=== PATIENT | female | born 1985 | race Caucasian/White ===

== ENCOUNTER 2016-10-13 06:18 | Day surgery (SDC) | payer SELFPAY ==
--- NOTE | 2016-10-13 07:09 | ER Document Report ---
ED Extremity Problem, Upper - General Time seen by provider: 07:04 Mode of Arrival: Ambulatory Information source: Patient TRAVEL OUTSIDE OF THE [place] IN LAST 30 DAYS: No - HPI Patient complains to provider of: Injury, Pain, Right, Forearm Onset: This morning <ELISA HOLLOWAY - Last Filed: 10/13/16 07:57> <ADRIANAZEEM Briceño - Last Filed: 10/13/16 11:41> - General Chief Complaint: Arm Injury Stated Complaint: ARM INJURY Notes: Patient is a 31-year-old female patient presenting to the emergency department with complaints of breaking off a needle into her right forearm while trying to learn how to self-inject methamphetamine. Patient states that she is learning how to inject herself with methamphetamine instead of her lying on another person to inject it for her. Patient states she was just practicing today when the needle broke off and is stuck in her arm. Patient and her friend attempted to get the needle out her arm with a hot compress, hydrogen peroxide etc. Patient is unsure of her last tetanus shot. Patient has a history of hypothyroidism and is supposed to be taking Synthroid; patient is not taking his medication because she states that her insurance has to pay for it which has not happened yet. Patient smokes and occasionally drinks alcohol but has no known allergies. (ELISA HOLLOWAY) - Related Data Allergies/Adverse Reactions: No Known Allergies Allergy (Unverified 10/13/16 06:26) Past Medical History - General Information source: Patient - Social History Smoking Status: Current Every Day Smoker Cigarette use (# per day): Yes - 1/2 ppd Chew tobacco use (# tins/day): No Frequency of alcohol use: Occasional Drug Abuse: Methamphetamine Family History: None Patient has suicidal ideation: No Patient has homicidal ideation: No Endocrine Medical History: Reports: Hx Hypothyroidism Past Surgical History: Reports: Hx Gynecologic Surgery - cervical cancer removal , Other - colonoscopy - Immunizations Hx Diphtheria, Pertussis, Tetanus Vaccination: Yes <ELISA HOLLOWAY - Last Filed: 10/13/16 07:57> Review of Systems - Review of Systems Constitutional: No symptoms reported EENT: No symptoms reported Cardiovascular: No symptoms reported Respiratory: No symptoms reported Gastrointestinal: No symptoms reported Genitourinary: No symptoms reported Female Genitourinary: No symptoms reported Musculoskeletal: See HPI Skin: See HPI Hematologic/Lymphatic: No symptoms reported Neurological/Psychological: No symptoms reported -: Yes All other systems reviewed and negative <ELISA HOLLOWAY - Last Filed: 10/13/16 07:57> Physical Exam - Vital signs Interpretation: Tachycardic - General General appearance: Appears well, Alert In distress: Mild - HEENT Head: Normocephalic, Atraumatic Eyes: Normal Pupils: PERRL Mouth/Lips: Other - poor dental condition Mucous membranes: Normal - Respiratory Respiratory status: No respiratory distress Chest status: Nontender Breath sounds: Normal Chest palpation: Normal - Cardiovascular Rhythm: Regular, Tachycardia Heart sounds: Normal auscultation Murmur: No - Abdominal Inspection: Normal Distension: No distension Bowel sounds: Normal Tenderness: Nontender Organomegaly: No organomegaly - Back Back: Normal, Nontender - Extremities General lower extremity: Normal inspection, Normal ROM, Normal strength Arm: Other - right antecubital medial area is where the broken needle is located , somewhat red and tender; several other injection sites to the right antecubital area that are firm and swollen - Neurological Neuro grossly intact: Yes Cognition: Normal Orientation: AAOx4 [place] Coma Scale Eye Opening: Spontaneous [place] Coma Scale Verbal: Oriented [place] Coma Scale Motor: Obeys Commands Magan Coma Scale Total: 15 Speech: Normal Sensory: Normal - Psychological Associated symptoms: Normal affect, Normal mood - Skin Skin Temperature: Warm Skin Moisture: Dry <ELISA HOLLOWAY - Last Filed: 10/13/16 07:57> Course - Laboratory Result Diagrams: 10/13/16 08:22 10/13/16 08:22 - Consults Dr. Mooney Time consulted: 08:10 Consulted provider: will come to ER <AZEEM CAMPBELL - Last Filed: 10/13/16 11:41> - Vital Signs Vital signs: Temp Pulse Resp BP Pulse Ox 98.1 F 103 H 18 132/89 H 100 10/13/16 06:23 10/13/16 06:23 10/13/16 06:23 10/13/16 06:23 10/13/16 06:23 (ELISA HOLLOWAY) (AZEEM CAMPBELL) - Laboratory Laboratory results interpreted by me: 10/13/16 08:22 WBC 13.0 H MCV 98 H MCHC 31.7 L Absolute Neutrophils 9.9 H Discharge <ELISA HOLLOWAY - Last Filed: 10/13/16 07:57> - Discharge Admitting Provider: Surgicalist Unit Admitted: OR <AZEEM CAMPBELL - Last Filed: 10/13/16 11:41> - Discharge Clinical Impression: Foreign body (FB) in soft tissue Needlestick injury accident Qualifiers: Encounter type: initial encounter Qualified Code(s): W27.3XXA - Contact with needle (sewing), initial encounter Condition: Stable Disposition: ADMITTED INPATIENT Scribe Attestation: 10/13/16 11:41 I personally performed the services described in the documentation, reviewed and edited the documentation which was dictated to the scribe in my presence, and it accurately records my words and actions. (AZEEM CAMPBELL) Scribe Documentation <ELISA HOLLOWAY - Last Filed: 10/13/16 07:57> <AZEEM CAMPBELL - Last Filed: 10/13/16 11:41> - Scribe Written by Scribe:: AZEEM CAMPBELL MD, SCRIBE 10/13/16 0825 Acting as scribe for: Dr. Campbell (ELISA HOLLOWAY) (AZEEM CAMPBELL)
[2016-10-13] MEDS ORDERED: DIPH/PERTUSS(ACELL)/TETANUS VAC/PF 0.5 ML SYR (>=10YO) IM ONE (08:03)
[2016-10-13] MEDS ORDERED: CEFAZOLIN 1 GM/D5W RTU 50 ML IV ONE (08:03)
[2016-10-13] MEDS ORDERED: NORMAL SALINE 1000 ML 1,000 ML IV ONE (08:04)
[2016-10-13 08:39] LABS: ABSOLUTE BASOPHILS # (AUTO) 0.1 10^3/uL (0.0-0.2); ABSOLUTE EOSINOPHILS # (AUTO) 0.1 10^3/uL (0.0-0.6); ABSOLUTE LYMPHOCYTES (AUTO) 2.2 10^3/uL (0.5-4.7); ABSOLUTE MONOCYTES (AUTO) 0.8 10^3/uL (0.1-1.4); ABSOLUTE NEUT (AUTO) 9.9 10^3/uL (1.7-8.2); BASOPHILS % (AUTO) 0.7 % (0-2); EOSINOPHILS % (AUTO) 0.5 % (0-6); HEMATOCRIT 42.8 % (36.0-47.0); HEMOGLOBIN 13.6 g/dL (12.0-15.5); LYMPHOCYTES % (AUTO) 16.7 % (13-45); MEAN CORPUSCULAR HGB CONC 31.7 g/dL (32.0-36.0); MEAN CORPUSCULAR VOLUME 98 fl (80-97); RED BLOOD COUNT 4.38 10^6/uL (3.72-5.28); RED CELL DISTRIBUTION WIDTH 13.4 % (11.5-14.0); SEGMENTED NEUTROPHILS % (AUTO) 76.1 % (42-78)
[2016-10-13] MEDS ORDERED: NICOTINE 14 MG/24 HR PATCH.TD24 TD ONE (09:54)
[2016-10-13] MEDS ORDERED: LORAZEPAM INJ 2 MG/1 ML VIAL IV ONE (09:54)
[2016-10-13 11:54] LABS: ALANINE AMINOTRANSFERASE 37 U/L (9-52); ALBUMIN 3.9 g/dL (3.5-5.0); ALKALINE PHOSPHATASE 75 U/L (38-126); ANION GAP 11 (5-19); ASPARTATE AMINO TRANSFERASE 36 U/L (14-36); BILIRUBIN,TOTAL 0.6 mg/dL (0.2-1.3); BLOOD UREA NITROGEN 10 mg/dL (7-20); CALCIUM 9.5 mg/dL (8.4-10.2); CARBON DIOXIDE 23 mmol/L (22-30); CHLORIDE 105 mmol/L (98-107); CREATININE RESULT 0.54 mg/dL (0.52-1.25); GLUCOSE 72 mg/dL (75-110); POTASSIUM 4.2 mmol/L (3.6-5.0); SODIUM 139.3 mmol/L (137-145); TOTAL PROTEIN 6.7 g/dL (6.3-8.2)
[2016-10-13] MEDS ORDERED: DEXTROSE 5%-LACTATED RINGERS 1,000 ML IV PRN ×3 (11:54→14:44)
[2016-10-13] MEDS ORDERED: DEXTROSE 5%-LACTATED RINGERS 1,000 ML IV ONE (12:14)
[2016-10-13] MEDS ORDERED: BUPIVACAINE HCL 0.5%-EPI 1:200000 INJ/PF 30 ML VIAL ONE (12:44)
[2016-10-13] MEDS ORDERED: FENTANYL CITRATE INJ/PF 100 MCG/2 ML AMPUL ONE (13:21)
[2016-10-13] MEDS ORDERED: MIDAZOLAM 2 MG/2 ML INJ ONE (13:21)
[2016-10-13] MEDS ORDERED: PROPOFOL INJ 200 MG/20 ML VIAL IV ONE (13:21)
[2016-10-13] MEDS ORDERED: LIDOCAINE 2%/EPINEPHRINE INJ 20 ML VIAL ONE (13:24)
[2016-10-13] MEDS ORDERED: ROPIVACAINE HCL 0.5% INJ/PF (5 MG/1 ML) 30 ML SDV ONE (13:25)
[2016-10-13] MEDS ORDERED: LIDOCAINE 2% INJ-PF (20 MG/ML) 10 ML AMPUL ONE (13:25)
--- NOTE | 2016-10-13 13:28 | HISTORY AND PHYSICAL E ---
History and Physical NAME: ADRY LEO : 1985 AGE: 31Y ADMITTED: 10/13/2016 ROOM: REASON FOR ADMISSION: Foreign body needle in right antecubital fossa. HISTORY OF PRESENT ILLNESS: This 31-year-old female presented to the emergency room because of a needle fragment enlodged in her antecubital fossa of the right upper extremity after injection of methamphetamines. The patient gives history of using methamphetamine since 02/2016 and has been injecting herself in her right forearm; however, the needle broke off in her arm and she presented to the emergency room complaining of pain at the needle injection site. The patient has stable vital signs and x-ray of the right forearm revealed the needle fragment in the subcutaneous tissue of the right forearm at the antecubital fossa. However, upon physical examination, only induration could be appreciated and the needle fragment could not be felt. The patient complains of pain 8/10 in the right forearm and she complains of radiating pains down her forearm to her wrist. Because of the significance of the pain, the patient will be taken to the operating room for removal of foreign body under fluoroscopy. PAST MEDICAL HISTORY: The patient has a previous history of hyperthyroidism and has been on Synthroid in the past. MEDICATIONS: The patient takes no medications at this time, but has been on tramadol, Zoloft and Visceral in the past. ALLERGIES: None. REVIEW OF SYSTEMS: The patient has no symptoms referable to the ears, nose, and throat, respiratory, cardiovascular, gastrointestinal, integumentary, lymphatic, endocrine systems. SOCIAL HISTORY: The patient smokes a pack of cigarettes for every day and a half and has been injecting amphetamines since 02/2016, drinks alcohol very rarely. PHYSICAL EXAMINATION: GENERAL: Examination reveals a 31-year-old female who is normally nourished, normally developed and complaining of right upper extremity pain. VITAL SIGNS: Blood pressure 132/89, temperature 98.1, pulse rate 103, respirations 18, saturations 100%. HEENT: There is no conjunctival pallor or scleral icterus. Mucous membranes are moist and pink. NECK: Supple without nodes or masses of thyroid, JVD, or bruits. Trachea is midline. CHEST: Chest wall shows good excursion. The lungs are clear anteriorly with good entry. CARDIOVASCULAR: The pulses are regular without murmurs or gallops. Mildly tachycardic. ABDOMEN: Soft and flat. Bowel sounds are present. There are no hernias or bruits. EXTREMITIES: Pertinent findings limited to the right upper extremity, where there is induration at the site of previous injections. There is tenderness just over the medial antecubital fossa region at the recent injection site. No foreign body can be palpated, but this area is moderately tender with induration without significant erythema or increased warmth. No discharge is noted. There are no sensory or motor deficits in the right upper extremity and adequate pulses are noted. Extremities otherwise show full range of motion. IMPRESSION: Foreign body needle in the right forearm secondary to methamphetamine injection. PLAN: Because of the patient's significant pain, we will take her to the OR for removal of the foreign under fluoroscopy. DICTATING PHYSICIAN: ALAN BILLY M.D. [id number] PHY#: [id number] ID: [id number] JOB#: [id number] ACCT: [id number] cc:ALAN BILLY M.D. >
[2016-10-13] MEDS ORDERED: DEXMEDETOMIDINE INJ 80 MCG/20 ML VIAL IV ONE (13:49)
[2016-10-13] MEDS ORDERED: FENTANYL CITRATE INJ/PF 100 MCG/2 ML AMPUL IV PRN ×3 (14:33)
[2016-10-13] MEDS ORDERED: OXYCODONE-ACETAMINOPHEN 5-325 MG TABLET PO PRN (14:39)
--- NOTE | 2016-10-13 15:07 | Brief Operative Note ---
BRIEF OPERATIVE REPORT DATE OF SURGERY: 10/13/16 TIME OF SURGERY: 14:00 PREOPERATIVE DIAGNOSIS: Foreign Body (Needle) of right forearm. POSTOPERATIVE DIAGNOSIS: Same SURGEON: ALAN BILLY FINDINGS: Foreign Body Needle in Rt. upper extremity antecubital fossa. COMPLICATIONS: None ESTIMATED BLOOD LOSS: Negligible TISSUE REMOVED OR ALTERED: Needle foreign body TECHNICAL PROCEDURE: See Operative report
[2016-10-13] MEDS ORDERED: INFLUENZA ADLT QUAD (36MOS+) 2016-17 VAC 0.5 ML SYR IM PRN (15:52)
--- NOTE | 2016-10-13 15:53 | OPERATIVE REPORT E ---
Operative Report NAME: ADRY LEO : 1985 AGE: 31Y DATE OF SURGERY: 10/13/2016 ROOM: 209 PREOPERATIVE DIAGNOSIS: Foreign body needle of right antecubital fossa. POSTOPERATIVE DIAGNOSIS: Foreign body needle of right antecubital fossa. PROCEDURE: Removal of foreign body needle from antecubital fossa of the right arm. SURGEON: ALAN BILLY M.D. ANESTHESIA: Regional plus local anesthesia with 1% Xylocaine and Marcaine. COMPLICATIONS: None. CONDITION: Stable. REPLACEMENT: Crystalloid. DRAINS: None. INDICATIONS FOR PROCEDURE: This 31-year-old female presented to the emergency room after attempting an injection of methamphetamines with the needle breaking off in her right forearm. The patient comes to the emergency room complaining of pain in the antecubital fossa. The needle could not be felt, but the needle was noted in the subcutaneous tissue or below on the x-ray. Upon my examination, I could not palpate the needle and the patient is being brought to the operating room for removal under fluoroscopic guidance. DESCRIPTION OF PROCEDURE: The patient was brought to the operating room and left on her stretcher. The right upper extremity was prepped and draped in the usual sterile manner, and then a C-arm was brought in. After sign out was achieved, we used a marker to identify the position of the needle using fluoroscopic guidance. After this, a *------* was placed on the forearm. A transverse incision was made across, just anterior to the antecubital fossa and carried through the skin and subcutaneous tissue. Under fluoroscopic guidance, we were able to locate the needle and after opening up the superficial fascia in the forearm, we isolated the needle in the subcutaneous tissue. The needle was removed intact and fluoroscopic inspection after removal showed no evidence of remaining fragments. After removal of the needle, the wound was irrigated with normal saline and then the subcutaneous tissue was approximated using 3-0 Vicryl and the skin was approximated using 4-0 Vicryl subcuticular *------* with application of Dermabond. The patient tolerated the procedure well. Sponge and instrument counts were correct. The patient was discharged to the PACU in a stable condition. DICTATING PHYSICIAN: ALAN BILLY M.D. [id number] PHY#: [id number] ID: [id number] JOB#: [id number] ACCT: [id number] cc:ALAN BILLY M.D. >
--- NOTE | 2016-10-13 15:53 | DISCHARGE SUMMARY E ---
Discharge Summary NAME: ADRY LEO : 1985 AGE: 31Y ADMITTED: 10/13/2016 DISCHARGED: 10/13/2016 DISCHARGE DIAGNOSIS: Status post removal of foreign body (needle) from right forearm. 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 The patient was seen in the emergency room complaining of pain in the antecubital fossa, but the needle could not be palpated. The needle on x-ray was noted in the forearm just below the antecubital fossa, just in the mid portion of the forearm. The patient complained of pain in this area, and because the needle could not be palpated, the patient was taken to the operating room, where under fluoroscopic guidance the needle was removed. The patient's postop course was uneventful. She was admitted to the floor just for observation. DISCHARGE INSTRUCTIONS: The patient is now discharged home on Percocet and is to follow up with [facility] in 7-10 days. DICTATING PHYSICIAN: ALAN BILLY M.D. [id number] PHY#: [id number] ID: [id number] JOB#: [id number] ACCT: [id number] cc:Giovani YEE M.D. >
[2016-10-13 16:33] VITALS: BP 115/80
== END 2016-10-13 17:05 | disposition home or self-care (01) ==
LOC: ER 06:18 → OROUT 11:57 → UNDOADMIN 12:57 → EH 12:57 → 2N 15:08 → EH 15:08 → OROUT 17:05 → UNDODISIN 17:05
PROVIDERS: ATTEND Surgery
PROC: BW1JZZZ Fluoroscopy of Upper Extremity (ICD-10-PCS; 2016-10-13)
PROC: 0JCG0ZZ Extirpation of Matter from Right Lower Arm Subcutaneous Tissue and Fascia, Open Approach (ICD-10-PCS; principal; 2016-10-13 13:30)
DX: M79.5 Residual foreign body in soft tissue (principal); Z23 Encounter for immunization; E05.90 Thyrotoxicosis, unspecified without thyrotoxic crisis or storm; F17.210 Nicotine dependence, cigarettes, uncomplicated
CPT/HCPCS: 99284; 90471; 96375; 96365; 36415; 85025; 81025; 80053; 73070; 90715; 90686; 10120; J2795; J2250; J3490 ×4; J0690; J3010; J2060; J7030; J2704; 00400